=== PATIENT | female | born 1960 | race Caucasian/White ===

== ENCOUNTER 2018-05-25 11:38 | Emergency (ER) | payer OTHER, SELFPAY ==
[2018-05-25 11:38] VITALS: BP 154/83; PULSE 56; RESP 14; TEMP 36.6; O2SAT 96; BMI 51.5
--- NOTE | 2018-05-25 11:59 | VDLE_ITS ---
Reason For Study: LEG PAIN RIGHT LEFT GSV is normal. CFV is compressible, spontaneous, phasic, CFV is compressible, spontaneous, phasic, competent, and demonstrates normal competent and demonstrates normal augmentation. augmentation. FV is compressible, spontaneous, phasic, competent and demonstrates normal augmentation. POP V is compressible, spontaneous, phasic, competent and demonstrates normal augmentation. T/P Trunk is compressible. PTV is compressible. RT PerV is compressible. Procedure Exam performed portable in ED. A preliminary report was called and/or faxed to Dr. Cook. Interpretation Summary There is no evidence of right lower extremity deep vein thrombosis. Right greater saphenous vein appears patent and compressible segmentally. Normal flow patterns left common femoral vein. Ordering Physician: Erick Cook Performed By: Felicitas Lau RVT
--- NOTE | 2018-05-25 12:45 | ED.VIS.GEN ---
History of Present Illness Chief Complaint: Lower Extremity Injury Informant: Patient Onset: Days - Onset May 22 Context: Sudden Onset Timing: Continuous Quality: Pain and discoloration right lower extremity Location: Pain popliteal fossa Current Severity: Mild Maximum Severity: Moderate Worsened by: Palpation Relieved by: Nothing Associated Symptoms: Swelling Narrative: Patient is a middle-aged woman who presents with pain right popliteal fossa and swelling with discoloration right leg. There is no history of cancer or congestive heart failure. She is on 2 antihypertensive meds. One is a diuretic and one is a beta-brandon. She denies prior history of PE or DVT. She has no risk factor for either. She denies chest pain, shortness of breath or difficulty breathing. There is no history of trauma. Prior similar symptoms: Yes - 1 year ago and negative for DVT Recent Illness/Hospitalization: No - Past Medical History (1) History of hypertension Status: Acute Past Medical History - Allergies and Home Meds Allergies/Adverse Reactions: Allergies No Known Allergies Allergy (Verified 05/25/18 11:40) Primary Care Physician: Marjorie Jacobs,Out of [Primary Care Provider] - Prior records reviewed: Yes Surgical History: noncontributory Lives: Spouse/ Significant Other Smoking Status: Former smoker Alcohol: None Review of Systems General: Denies: Chills, Fever, Malaise, Subjective, Sweats, Weight loss Cardiovascular: Denies: Chest pain, Palpitations, Heart racing Respiratory: Denies: Dyspnea, Cough, Sputum, Dyspnea on exertion, Orthopnea, Paroxysmal nocturnal dyspnea Musculoskeletal: Reports: Swelling, Extremity Pain. Denies: Myalgias, Arthralgias, Neck pain, Back pain - Make it easier Neurological: Denies: Headache, Weakness, Parasthesia, Numbness - See Hematologic: Denies: Easy bruising, Easy bleeding Allergy: Denies: Uticaria, Swelling of the mouth, Swelling of the tongue Physical Exam Vital Signs/Narrative: Vital Signs Temp Pulse Resp BP Pulse Ox 05/25/18 11:38 97.9 F 56 L 14 154/83 H 96 Inital Vital Signs reviewed: Yes General: Well nourished, Well developed, Obese, No Acute Distress Head: Normocephalic - BMI 51.5, Atraumatic Eyes: Perrl, EOMI. Negative for: Pale conjunctiva, Scleral icterus Neck: Supple, Nontender, No lymphadenopathy, No JVD, - Cardiovascular: Regular rate, Regular rhythm, No murmurs, Normal S1, Normal S2 Respiratory: No distress, CTA bilaterally, Chest nontender Extremities: Tenderness - Right popliteal fossa, Edema - 1+ pitting edema bilaterally, leg Skin: Normal color - not pedal, No rash. Negative for: Cyanosis, Jaundice Neurological: Alert, Oriented x3, Cranial nerves II-XII grossly intact, Normal Strength, Normal Sensation Psychological: Normal affect, Normal Mood Diagnostic/Tx/Re-eval - Medical Decision Making Patient with lymphedema and discoloration right leg with pain pump to fossa need to evaluate for DVT. Venous duplex study with was obtained and negative. Differential includes lymphedema for many causes, DVT doubt CHF ED Disposition - Plan for ED Patient: Disposition: Home or Assisted Living Diagnosis: Lymphedema of both lower extremities, Pain popliteal fossa Instructions: ED Lymphedema Referrals: [facility],Out of [Primary Care Provider] - 1 Week if not improving
[2018-05-25 13:20] VITALS: BP 135/67; PULSE 59; RESP 16; O2SAT 98
== END 2018-05-25 13:20 | disposition home or self-care (01) ==
PROVIDERS: Emergency Provider Emergency Medicine
DX: I89.0 Lymphedema, not elsewhere classified (principal); M25.561 Pain in right knee; M79.89 Other specified soft tissue disorders; I10 Essential (primary) hypertension; E66.9 Obesity, unspecified; Z68.43 Body mass index [BMI] 50.0-59.9, adult; Z79.899 Other long term (current) drug therapy; Z87.891 Personal history of nicotine dependence
CPT/HCPCS: 93971; 99282

== ENCOUNTER → 2020-07-28 15:49 | Outpatient (CLI) | payer BC, SELFPAY ==
--- NOTE | 2020-07-28 16:00 | BD_ITS ---
STUDY: DUAL ENERGY X-RAY ABSORPTIOMETRY / DXA REASON FOR EXAM: Female, 59 years old. Z780. The patient is postmenopausal. TECHNIQUE: Bone Mineral Density (BMD) measurements of lumbar spine and bilateral hips were obtained. COMPARISON: None. FINDINGS: Lumbar Spine (L1-L4): g/cm2 (1.332) / T-score (1.4) / Z-score (2.4) Findings are suggestive of normal bone density with a low fracture risk. Left Femur Total: g/cm2 (1.255) / T-score (2.0) / Z-score (2.7) Left Femoral Neck: g/cm2 (1.244) / T-score (1.4) / Z-score (2.6) Right Femur Total: g/cm2 (1.265) / T-score (2.0) / Z-score (2.8) Right Femoral Neck: g/cm2 (1.174) / T-score (1.0) / Z-score (2.1) BD/Dexa Bone Density Study IMPRESSION: The patient is considered normal as outlined below according to World Nick Organization (WHO) criteria with a low fracture risk. Reference Information: The T-score is the number of standard deviations above or below the standard which is normal for young adults at their peak bone mineral density. The World Health Organization (WHO) interprets the T-scores as follows: Above -1 Normal bone density Between -1 and -2.5 Osteopenia Equal to / or below -2.5 Osteoporosis As a practical clinical guideline, osteopenia may be graded as follows: Mild -1 through -1.5 Moderate -1.6 through -2.0 Severe -2.1 through -2.4 The Z-score is the number of standard deviations above or below age-matched controls. A Z-score of less than -1.5 would be considered abnormal. References: 1. NIH Osteoporosis and Related Bone Diseases www osteo.org 2. International Society for Clinical Densitometry www iscd.org 3. National Osteoporosis Foundation www nof.org Electronically Signed: Rajeev Palacios MD at 8:14 EDT , Service support ,
== END ==
LOC: OPBD 15:50
PROVIDERS: PCP Nurse Practitioner; Referring Provider Nurse Practitioner; Visit Provider Nurse Practitioner
DX: Z78.0 Asymptomatic menopausal state (principal)
CPT/HCPCS: 77080

== ENCOUNTER 2020-11-20 19:05 | Emergency (ER) | payer BC, SELFPAY ==
[2020-11-20 19:06] VITALS: BP 148/93; PULSE 67; RESP 18; TEMP 36.8; O2SAT 95; BMI 48.9
--- NOTE | 2020-11-20 19:19 | EDS_ITS ---
HPI History of Present Illness Chief Complaint: Lower Extremity Injury Informant: patient Narrative Narrative: 59-year-old female presents to the emergency room with a red area on her left anterior leg. This has been since Monday. Notes increased warmth. She states it feels a little swollen and she is worried about blood clots because she saw her son have a blood clot when he was in the hospital. She denies that her feet are swollen. No prior history of DVT or PE. She is treated for hypertension. [facility] Medical History (Updated 11/20/20 @ 20:[address] Alejandro Canales DO) Hypertension Home Medications cephalexin 500 mg PO Q6 #28 capsule 11/20/20 [Rx Last Taken Unknown] hydrochlorothiazide 25 mg PO DAILY 11/20/20 [History Last Taken Unknown] metoprolol succinate 100 mg PO DAILY 11/20/20 [History Last Taken Unknown] Allergy/AdvReac Type Severity Reaction Status Date / Time No Known Allergies Allergy Verified 05/25/18 11:40 Surgical History H/O: hysterectomy Social History (Updated 11/20/20 @ 19:[address] Alejandro Canales DO) Smoking Status: Never smoker substance use type: does not use ROS ROS ED Constitutional Constitutional ED: Denies chills or weight loss Eyes Eyes: Denies change in vision or diplopia ENT ENT ED: Denies ear pain, rhinorrhea or sore throat Cardiovascular Cardiovascular: Denies chest pain, orthopnea, palpitations or racing heartbeat Respiratory/Chest Respiratory/Chest: Denies cough, dyspnea or orthopnea Gastrointestinal Gastrointestinal: Denies abdominal pain, diarrhea, nausea or vomiting Genitourinary Genitourinary ED: Denies dysuria, hematuria or urinary frequency Musculoskeletal Musculoskeletal: Reports other Details: See history of present illness ; Denies arthralgias or myalgias Integumentary Reports rash; Denies abscess Neurologic Neurologic: Denies headache(s) or weakness Psychiatric Psychiatric: Denies anxiety, depression, suicidal ideation or suicidal thoughts Endocrine Endocrinology: Denies polydipsia, polyphagia or polyuria Allergic/Immunologic Allergic/Immunologic ED: Denies mouth swelling, tongue swelling or urticaria EXAM Physical Exam Const Vital Signs: 11/20/20 19:06 Temperature 98.3 F Temperature Source Oral Pulse Rate 67 Respiratory Rate 18 Blood Pressure 148/93 H Blood Pressure Mean 111 Pulse Ox 95 Oxygen Delivery Method Room Air Positive well developed and obese General Appearance ED: well developed Nutritional Appearance: obese HEENT Reports normocephalic, head/scalp atraumatic and moist mucous membranes Eyes PERRL and EOMs intact bilaterally Neck no lymphadenopathy, supple and no JVD Resp normal respiratory effort and clear to auscultation bilaterally Cardio regular rate, regular rhythm and no murmurs GI normal to inspection, nondistended, normoactive bowel sounds and non-tender Palpation: soft Back/Spine no CVA tenderness and normal ROM Extremity full ROM Extremity Narrative: There is no significant swelling of the left leg or foot. No palpable cords. No calf tenderness. There is a 5 x 7 cm area of erythema and increased warmth over the anterior mid leg. General Extremety ED: Negative for edema General Extremity: Negative for edema Neuro oriented x3 and CN's II-XII intact bilaterally Sensorium / Orientation: alert Motor Exam: strength 5/5 throughout Psych mental status grossly normal Mood & Affect: Negative for depressed or tearful Skin no rashes or lesions noted and no wounds MDM MDM MDM Narrative Medical decision making narrative: Duplex ultrasound demonstrates no DVT. Noted to have superficial thrombophlebitis at the level of saphenous vein where she has her erythema. Discharge Plan Triage Chief Complaint: Lower Extremity Injury ED Provider: Alejandro Canales Dx/Rx/DC Orders Clinical Impression: Superficial thrombophlebitis Instructions: ED Thrombophlebitis, Superficial Prescriptions: New cephalexin [cephalexin] 500 MG capsule 500 mg PO Q6 Qty: 28 RF: 0 No Action metoprolol succinate 100 mg tablet extended release 24 hr 100 mg PO DAILY RF: 0 hydrochlorothiazide 25 mg tablet 25 mg PO DAILY RF: 0 Primary Care Provider: Giovanna Armenta NP Referrals: Giovanna Armenta CLIENT TECHNICAL SPECIALIST, CLIENT TECHNICAL SPECIALIST-C [Primary Care Provider] - 1 Week if not improving Disposition Disposition: Home, Self Care
--- NOTE | 2020-11-20 20:08 | US_ITS ---
STUDY: VENOUS DOPPLER ULTRASOUND - LEFT LOWER EXTREMITY REASON FOR EXAM: Female, 59 years old. LEG PAIN AND SWELLING undefined -- PAIN TECHNIQUE: Ultrasound evaluation of the deep vein system to include gan-scale imaging and compression was performed. Gan-scale imaging and Doppler sonographic evaluation, including duplex spectral analysis and qualitative color flow sonography, was performed. COMPARISON: None. FINDINGS: Common Femoral Vein: Normal compression, spontaneity and augmentation. Normal color Doppler. Greater Saphenous : Thrombus Superficial Femoral Proximal: Normal compression, spontaneity and augmentation. Normal color Doppler. Superficial Femoral Middle: Normal compression, spontaneity and augmentation. Normal color Doppler. Superficial Femoral Distal: Normal compression, spontaneity and augmentation. Normal color Doppler. Popliteal Vein: Normal compression, spontaneity and augmentation. Normal color Doppler. Posterior Tibial Vein: Normal compression, spontaneity and augmentation. Normal color Doppler. Peroneal Vein: Normal compression, spontaneity and augmentation. Normal color Doppler. There is no demonstrated deep venous thrombosis. US/Venous Duplex Imag/Limited/Uni IMPRESSION: There is no demonstrated deep venous thrombosis. Superficial thrombus of the left GSV. Please see technologist report in PACS for further details for their impression/ worksheet/ details/ etc. Electronically Signed: Fredy Guevara MD at 20:57 EDT , Service support ,
[2020-11-20] MEDS: Cephalexin 250 MG Capsule 500 MG PO (21:02)
[2020-11-20 21:06] VITALS: BP 140/72; PULSE 89; RESP 15; O2SAT 99
== END 2020-11-20 21:07 | disposition home or self-care (01) ==
PROVIDERS: Emergency Provider Emergency Medicine; PCP Nurse Practitioner
DX: I80.02 Phlebitis and thrombophlebitis of superficial vessels of left lower extremity (principal); I10 Essential (primary) hypertension; E66.9 Obesity, unspecified; Z79.899 Other long term (current) drug therapy
CPT/HCPCS: 93971; 99283

== ENCOUNTER → 2021-12-03 | Outpatient (CLI) | payer OTHER, SELFPAY ==
[2021-12-14 18:27] LABS: HPV APTIMA, High Risk Negative (Negative)
== END | disposition home or self-care (01) ==
LOC: LABSPEC 06:36
PROVIDERS: PCP Nurse Practitioner Family; Visit Provider Obstetrics & Gynecology
DX: Z12.4 Encounter for screening for malignant neoplasm of cervix (principal)
CPT/HCPCS: 87624; 88175; G0145

== ENCOUNTER → 2021-12-15 | Outpatient (CLI) | payer OTHER, SELFPAY ==
--- NOTE | 2021-12-15 07:27 | BI_ITS ---
MAMMOGRAPHY - BILATERAL SCREENING REASON FOR EXAM: Female, 61 years old. Routine annual screening examination. PERTINENT HISTORY: Mother with breast cancer. Grandmother with breast cancer. Aunt with breast cancer. TECHNIQUE: Digital bilateral breast campbell (3D mammographic acquisition) in the CC and MLO projections. 2-D mediolateral oblique (MLO) and craniocaudad (CC) views of both breasts were obtained. CAD: Full Field Digital Mammography with Computer Added Detection was performed. COMPARISON: Comparison is made with prior outside examination dated 09/13/2019. FINDINGS: Breast Composition: There are scattered areas of fibroglandular density. There are no dominant masses or suspicious calcifications. Stable 4.6 mm well-defined nodule in the upper lateral aspect of the left breast suggestive of a small lymph node. A similar appearing nodular density measuring 4 mm is seen in the inferior central portion of the right breast. No other significant abnormalities are identified. There has been no significant change since the prior study. BI/SCRN MAMM (CAD)W/CAMPBELL BILAT IMPRESSION: Stable bilateral screening mammogram. Yearly follow-up mammogram recommended. (A) ASSESSMENT CATEGORY: BIRADS Category 2: Benign. A letter regarding these results will be sent to the patient by the facility within 30 days. Approximately 10% of breast cancers are not detected by mammography. A normal mammogram should not delay biopsy of a clinically suspicious abnormality. [id number] Electronically Signed: Rajeev Palacios MD at 9:12 EDT ,
== END | disposition home or self-care (01) ==
LOC: OPBI 07:26
PROVIDERS: PCP Nurse Practitioner Family; Referring Provider Nurse Practitioner Family; Visit Provider Nurse Practitioner Family
DX: Z12.31 Encounter for screening mammogram for malignant neoplasm of breast (principal); N63.21 Unspecified lump in the left breast, upper outer quadrant; Z80.3 Family history of malignant neoplasm of breast
CPT/HCPCS: 77063; 77067

== ENCOUNTER → 2023-06-08 | Outpatient (CLI) | payer OTHER, SELFPAY ==
--- NOTE | 2023-06-08 09:31 | BI_ITS ---
MAMMOGRAPHY - BILATERAL SCREENING REASON FOR EXAM: Female, 62 years old. Routine annual screening examination. PERTINENT HISTORY: Mother with breast cancer. Grandmother with breast cancer. Aunt with breast cancer. TECHNIQUE: Digital bilateral breast campbell (3D mammographic acquisition) in the CC and MLO projections. 2-D mediolateral oblique (MLO) and craniocaudad (CC) views of both breasts were obtained. CAD: Full Field Digital Mammography with Computer Added Detection was performed. COMPARISON: Comparison is made with prior study dated December 15, 2021. FINDINGS: Breast Composition: The breasts are almost entirely fatty. There are no dominant masses or suspicious calcifications. Stable small bilateral axillary lymph nodes. No other significant abnormalities are identified. There has been no significant change since the prior study. BI/SCRN MAMM (CAD)W/CAMPBELL BILAT IMPRESSION: Stable bilateral screening mammogram. Yearly follow-up mammogram recommended. (A) ASSESSMENT CATEGORY: BIRADS Category 2: Benign. A letter regarding these results will be sent to the patient by the facility within 30 days. Approximately 10% of breast cancers are not detected by mammography. A normal mammogram should not delay biopsy of a clinically suspicious abnormality. [id number] Electronically Signed: Rajeev Palacios MD at 12:14 EDT ,
--- NOTE | 2023-06-08 09:38 | BD_ITS ---
STUDY: DUAL ENERGY X-RAY ABSORPTIOMETRY / DXA REASON FOR EXAM: Female, 62 years old. Z780 TECHNIQUE: Bone Mineral Density (BMD) measurements of lumbar spine and bilateral hips were obtained. COMPARISON: Comparison is made with prior study dated July 28, 2020. FINDINGS: Lumbar Spine (L1-L4): g/cm2 (1.282) / T-score (2.1) / Z-score (3.6) Findings are suggestive of normal bone density with a low fracture risk. Left Femur Total: g/cm2 (1.207) / T-score (2.2) / Z-score (3.1) Left Femoral Neck: g/cm2 (0.985) / T-score (1.2) / Z-score (2.5) Right Femur Total: g/cm2 (1.162) / T-score (1.8) / Z-score (2.8) Right Femoral Neck: g/cm2 (1.032) / T-score (1.6) / Z-score (2.9) The T-Scores on the most recent prior examination were: Lumbar Spine (L1-L4): There has been worsening of bone density since the previous examination. Left Femur Total: which represents an improvement of 2.2%. Right Femur Total: which represents a worsening of 2.4%. BD/Dexa Bone Density Study IMPRESSION: The patient is considered normal as outlined below according to World Nick Organization (WHO) criteria with a low fracture risk. There has been worsening of bone density since the previous examination. Reference Information: The T-score is the number of standard deviations above or below the standard which is normal for young adults at their peak bone mineral density. The World Health Organization (WHO) interprets the T-scores as follows: Above -1 Normal bone density Between -1 and -2.5 Osteopenia Equal to / or below -2.5 Osteoporosis As a practical clinical guideline, osteopenia may be graded as follows: Mild -1 through -1.5 Moderate -1.6 through -2.0 Severe -2.1 through -2.4 The Z-score is the number of standard deviations above or below age-matched controls. A Z-score of less than -1.5 would be considered abnormal. References: 1. NIH Osteoporosis and Related Bone Diseases www osteo.org 2. International Society for Clinical Densitometry www iscd.org 3. National Osteoporosis Foundation www nof.org Electronically Signed: Rajeev Palacios MD at 8:55 EDT ,
== END | disposition home or self-care (01) ==
LOC: OPBD 09:31
PROVIDERS: PCP Nurse Practitioner Family; Referring Provider Nurse Practitioner Family; Visit Provider Nurse Practitioner Family
DX: Z12.31 Encounter for screening mammogram for malignant neoplasm of breast (principal); Z78.0 Asymptomatic menopausal state; Z80.3 Family history of malignant neoplasm of breast
CPT/HCPCS: 77063; 77067; 77080

== ENCOUNTER → 2024-06-10 | Outpatient (CLI) | payer OTHER, SELFPAY ==
--- NOTE | 2024-06-10 07:31 | BI_ITS ---
EXAM: SCRN MAMM (CAD)W/CAMPBELL BILAT DATE: 06/10/2024 CLINICAL HISTORY: F, Age 63 y/o , SCRN MAMM (CAD)W/CAMPBELL BILAT BREAST CANCER RISK ASSESSMENT: Has not been calculated. TECHNIQUE: Bilateral screening digital breast tomosynthesis with 2D and 3D images. Computer aided detection. COMPARISON: Prior exam(s) dated 06/08/2023 and 12/15/2021. FINDINGS: TISSUE DENSITY: The breast tissue is almost entirely fatty. Bilateral Breast Mammographic Findings: No suspicious masses, suspicious cluster of microcalcifications, architectural distortion or secondary sign of malignancy is identified in either breast. Benign round microcalcifications are seen in both breasts. Well-circumscribed stable isodense masses are seen in both breasts. BI/SCRN MAMM (CAD)W/CAMPBELL BILAT IMPRESSION: OVERALL FINAL ASSESSMENT: BIRADS 2 BENIGN FINDING RECOMMENDATION: Routine annual follow-up in 1 Year A letter with findings and recommendations will be mailed to the patient. Reading Location: [id number]
== END | disposition home or self-care (01) ==
LOC: OPBI 07:30
PROVIDERS: PCP Nurse Practitioner Family; Referring Provider Nurse Practitioner Family; Visit Provider Nurse Practitioner Family
DX: Z12.31 Encounter for screening mammogram for malignant neoplasm of breast (principal)
CPT/HCPCS: 77063; 77067